=== PATIENT | female | born 2000 | race Caucasian/White ===

== ENCOUNTER 2019-03-13 22:10 | Outpatient (CLI) | payer MEDICAID, SELFPAY ==
[2019-03-13] VITALS (10 sets, daily range): BP systolic 0–135; BP diastolic 0–83; PULSE 49–64; RESP 18; TEMP 36.9; BMI 29.5
== END 2019-03-13 23:50 | disposition home or self-care (01) ==
LOC: OPOB 22:18 → OBGYN 23:43 → OPOB 03-14 07:38
PROVIDERS: Family Provider Family Medicine; Visit Provider Family Medicine
DX: O26.899 Other specified pregnancy related conditions, unspecified trimester (principal); Z3A.00 Weeks of gestation of pregnancy not specified; R50.9 Fever, unspecified; R10.9 Unspecified abdominal pain
CPT/HCPCS: 59025; 99211

== ENCOUNTER 2019-03-25 17:47 | Inpatient (IN) | payer MEDICAID, SELFPAY ==
[2019-03-25] VITALS (13 sets, daily range): BP systolic 0–140; BP diastolic 0–81; PULSE 51–79; RESP 16–18; TEMP 36.9
[2019-03-25 19:35] LABS: Basophils % 0.4 %; Eosinophils # 0.1 10^3/uL (0.0-0.8); Hematocrit 33.2 % (37.0-47.0); Hemoglobin 11.1 g/dL (11.5-15.3); Lymphocytes # 2.2 10^3/uL (1.5-6.5); Lymphocytes % 21.3 %; Mean Corpuscular HGB Conc 33.4 g/dL (30.0-36.0); Mean Corpuscular Hemoglobin 29.9 pg (28.0-34.0); Mean Corpuscular Volume 89.5 fL (81-99); Mean Platelet Volume 9.8 fL (7.4-10.4); Monocytes # 0.6 10^3/uL (0.2-0.9); Monocytes % 5.4 %; Neutrophils # 7.5 10^3/uL (1.8-8.0); Neutrophils % 71.4 %; Nucleated Red Blood Cells % 0 %; Platelet Count 235 10^3/cmm (130-400); Red Blood Count 3.71 10^6/uL (4.1-5.3); Red Cell Distribution Width 13.2 % (12.1-15.1); White Blood Count 10.5 10^3/uL (4.5-13.0)
[2019-03-26] VITALS (46 sets, daily range): BP systolic 0–149; BP diastolic 0–75; PULSE 45–83; RESP 13–18; TEMP 36.6–37.2; O2SAT 95–100
--- NOTE | 2019-03-26 10:04 | P.ANES_ITS ---
Pre-Anesthetic Assessment Pre-Anesthetic Assessment: Height/Weight: Height 1.63 m Weight 78.925 kg Temp Pulse Resp BP 98.3 F 65 16 124/75 03/26/19 01:00 03/26/19 08:49 03/26/19 01:00 03/26/19 08:49 Preop Diagnosis: labor pain Proposed Procedure: Emergent Familial anesthetic complications: N/A Was Beta Valentina taken within 24 hours: N/A Last intake: 09:30 sprite and OJ 09:30 [place] Last Intake: 10:00 Social: Social History: Tobacco Packs per day: 1/2 ppd Pack years: 3 Exam: Pre-Anes Outpt Exam: alert, clear to auscultation bilaterally and regular rate & rhythm Airway: Submandibular: WNL Cervical ROM: WNL MP: 1 Dentition: Other Pulmonary: Pulmonary: None reported Comments: patient states feel like she has a sinus infection but can't take anything for it. sinus drainage. CV/HEM: CV/HEM: None reported : : None reported Hepatic: Hepatic: None reported GI: GI: GERD Metabolic: Metabolic: None reported Musc/skel: Musc/skel: None reported Neuropsych: Neuropsych: None reported Anesthetic Plan: ASA status: II Anesthesia: Anesthesia Evaluation and Regional (specify below) Other: epidural Risk of > 500 ml blood loss (7ml/kg in children): No PFSH Anesthesia Female Reproductive History: : 1 Data Anesthesia CBC & Chem 7: 03/25/19 18:59 Other Labs: Laboratory Results - last 48 hr 03/25/19 18:59 WBC 10.5 RBC 3.71 L Hgb 11.1 L Hct 33.2 L MCV 89.5 MCH 29.9 MCHC 33.4 RDW 13.2 Plt Count 235 MPV 9.8 Neut % (Auto) 71.4 Lymph % (Auto) 21.3 [place] % (Auto) 5.4 Eos % (Auto) 1.0 Baso % (Auto) 0.4 Neut # (Auto) 7.5 Lymph # (Auto) 2.2 [place] # (Auto) 0.6 Eos # (Auto) 0.1 Baso # (Auto) 0.0 Nucleated RBC % (auto) 0 Nucleated RBCs # 0.0 Cardiac Studies: No Data to Display
[2019-03-26] MEDS: ondansetron 2 mg/ML SDV 2 mL 4 MG IVP ×2 (10:53→21:03)
[2019-03-26] MEDS: acetaminophen 325 mg Tablet 650 MG PO (10:54)
[2019-03-26] MEDS: miSOPROStol 100 mcg tablet 25 MCG VAGINAL ×2 (10:59→14:09)
[2019-03-26] MEDS: lactated ringers 1,000 ML 999 ML (14:38)
[2019-03-26] MEDS: fentaNYL 50 mcg/mL INJ 2mL IV (14:46)
--- NOTE | 2019-03-26 16:34 | P.HP_ITS ---
Providers/Chief Complaint Admitting Physician: Russ Canales MD Chief Complaint: induction labor History of Present Illness Rupal Salcedo is a 19 year old female 1 para 0 with an EDC of 03/24/2019. She has had no significant problems or her course except ultrasound that demonstrated a two-vessel cord. There were no other abnormalities noted. As she was 40 weeks and 1 day gestation and having significant pain she was admitted to the hospital yesterday for cervical ripening and induction. An IV was started on her and she had a vasovagal reaction with hypotension and late decelerations immediately after that. That resolved quickly last night but further evaluation found her to be tucker and the decision was made last night to not proceed with misoprostel cervical ripening. Overnight her contractions spaced way out and she had a reassuring heart strip and therefore misoprostel cervical ripening was given. She had a couple of positional spells of late decelerations that resolved very quickly with oxygen and positioning with IV fluid bolus. Immediately after the second dose of misoprostel she had a more prolonged deceleration or recurrent late decelerations. Presently with oxygen and intravenous fluid heart tones are pretty flat but reassuring. There is an occasional acceleration but not a very reactive strip at this time. However, her cervical exam has not changed from approximately 1-1/2 cm dilated. As her cervix is not changing and the overall heart tone strip is not terribly reassuring a decision is being made after discussion with the patient and spouse to proceed with section at this time. Dr. Torres has been notified and consulted. Review of Systems General: Reports: 10 or more systems reviewed and unremarkable except in HPI and below Const: Reports: fatigue; Denies: fever or chills ENMT: Denies: throat pain or nasal discharge Card: Denies: chest pain or palpitations Resp: Denies: shortness of breath, productive cough, non-productive cough or chest congestion GI: Reports: abdominal pain (Tractions.) and nausea; Denies: vomiting (None since this morning.) : Reports: absence of menstruation (She is .) Musc: Reports: back pain; Denies: neck pain or limited range of motion Neuro: Denies: headache, numbness in extremities or weakness in extremities Psych: Reports: anxiety Medications/Allergies Allergies Allergy/AdvReac Type Severity Reaction Status Date / Time No Known Allergies Allergy Verified 03/13/19 22:35 [facility] Acute Female Reporductive History: : 1 Vitals/I&O/Wt Last Vital Signs Temp 99.0 F 03/26/19 12:03 Pulse 53 L 03/26/19 14:16 Resp 15 03/26/19 14:46 BP 128/72 03/26/19 14:16 Weight last 48 hrs Weight 78.925 kg Physical Exam Const: COMMON NORMALS: no apparent distress (She is somewhat tearful and anxious.) and average body habitus GENERAL APPEARANCE: cooperative and anxious ORIENTATION/CONSCIOUSNESS: Yes awake, Yes oriented to person, Yes oriented to place and Yes oriented to time HENMT: MOUTH: oral and palatal mucosa normal Chest: COMMONS NORMALS: inspection of chest normal Resp: COMMON NORMALS: normal respiratory effort, no retractions, no use of accessory muscles and clear to auscultation bilaterally GI: COMMON NORMALS: normal to inspection, nondistended, normoactive bowel sounds (She is .) and non-tender : COMMON NORMALS: Yes no CVA tenderness and Yes external appearance normal BIMANUAL EXAM - VAGINA & UTERUS: Yes normal bimanual exam and Yes normal cervical palpation (Approximately 1-1/2 cm dilated.) Extremity: GENERAL: No calf tenderness and No edema Neuro: COMMON NORMALS: oriented x3, CN's II-XII intact bilaterally, moves all extremities and no focal motor deficits Psych: APPEARANCE: Yes well kempt MOOD & AFFECT: Yes anxious Data : 03/25/19 18:59 A&P Assessment and plan (1) Post term over 40 weeks: Patient was admitted for induction purposes. She received 2 doses of misoprostel today. Status: Acute Code(s): O48.0 - Post-term (2) Non-reassuring heart tones complicating , antepartum: Status: Acute Code(s): O36.8390 - Maternal care for abnormalities of the heart rate or rhythm, unspecified trimester, not applicable or unspecified (3) Two vessel umbilical cord, antepartum, single gestation: This infant is at risk for problems but most babies with the single umb ilical artery do just fine. Status: Acute Code(s): O09.899 - Supervision of other high risk pregnancies, unspecified trimester Attestations Medical Necessity Statement*: This patient is at term with nonreassuring heart tones and presently requires proceeding with primary section due to nonreassuring heart tones and minimal cervical change with contractions. Time Spent in Patient Care: 16 - 35 minutes Coding Level of Care Code Acute Hoop Cutter for Chg Fwd Diagnoses Post term over 40 weeks O48.0 Non-reassuring heart tones complicating , antepartum O36.8390 Two vessel umbilical cord, antepartum, single gestation O09.899
[2019-03-26] MEDS: lactated ringers 1,000 ML 125 ML IV (16:38)
[2019-03-26] MEDS: famotidine 20 mg/2 mL INJ IVP (16:39)
[2019-03-26] MEDS: metoclopramide 5 mg/mL SDV 2 mL 10 MG IVP (16:46)
[2019-03-26] MEDS: citric acid-sodium citrate 30 mL UDC PO (16:47)
--- NOTE | 2019-03-26 18:02 | P.OP_ITS ---
Operative Report Date of procedure: 03/26/19 Pre-op Diagnosis: Nonreassuring heart tones, 40 weeks estimated gestational age Post-op diagnosis: same Procedure Done: Lower transverse section The patient was brought back to the operating room where she was prepped and draped in usual sterile fashion. Anesthesia was found to be adequate. A lower transverse skin incision was then made with a #10 blade. I then dissected down to the underlying subcutaneous tissue until arriving at the prerectal fascia. The fascia was then nicked with the scalpel bilaterally. The fascial incisions were then carried laterally with Trimble scissors. Attention was then turned to the superior aspect of the incision which was grasped with kochers and tented up away from the underlying rectus abdominis muscles. The muscles were then dissected away from the fascia manually, and later with Trimble scissors. Attention was then turned to the inferior aspect of the incision, and the fascia was dissected away from the underlying muscle in similar fashion. The rectus a bdominis muscles were then spread manually. The peritoneum was entered manually. Excellent visualization of the uterus was noted. A lower transverse uterine incision was then made with a #10 blade. Upon arriving at the intrauterine cavity, the uterine incision was then extended manually. Upon entering the amniotic sac, meconium was noted. The was noted to be in vertex position. The baby was delivered without difficulty. After delivery of the head, the mouth and nose were suctioned at the site of the incision. There was no nuchal cord. The remainder of the body was then delivered and placed on the abdomen. The cord was cut and clamped. The baby was then handed to the waiting nurse. The placenta was removed intact. The uterus was externalized. The intrauterine cavity was cleansed of any remaining debris. The uterine incision was reapproximated in 2 layers. The first layer was performed with 0 Vicryl in a running locked stitch. The second layer was an imbricating stitch also using 0 Vicryl. The uterus was replaced into the abdomen. The peritoneum was then irrigated with warm saline. I reexamined the uterine incision and found it to be hemostatic. The rectus abdominis muscles were then reapproximated using 0 Vicryl in a running stitch. The fascia was then reapproximated using 0 Vicryl in running stitch. The subcutaneous tissue was then reapproximated using 0 Vicryl in a running stitch. The skin was reapproximated using rodney. A sterile dressing was placed. All counts were correct x2. Both the mother and baby were in stable condition. Specimens removed/disposition: 1. Male infant with a weight of 8 pounds 4 ounces and Apgars of 4 and 9 2. Placenta delivered with 2 vessel cord Pathology: other Pathology: Placenta with three-vessel cord delivered post pathology Surgeon: Raymond Torres Regulatory Product Manager: Russ Canales Anesthesia: Other (Spinal) Estimated blood loss (mL): 500 Complications: None Condition: stable
[2019-03-26] MEDS: diphenhydrAMINE 50 mg/mL SDV 1mL 25 MG IVP (21:04)
[2019-03-27] VITALS (20 sets, daily range): BP systolic 92–143; BP diastolic 42–84; PULSE 86–143; RESP 16–22; TEMP 36.6–36.9; O2SAT 94–97
[2019-03-27] MEDS: ketorolac 30 mg/mL INJ IVP (01:56)
[2019-03-27 06:09] LABS: Mean Corpuscular HGB Conc 32.7 g/dL (30.0-36.0); Mean Corpuscular Hemoglobin 29.1 pg (28.0-34.0); Mean Corpuscular Volume 89.1 fL (81-99); Mean Platelet Volume 9.2 fL (7.4-10.4); Platelet Count 188 10^3/cmm (130-400); Red Cell Distribution Width 13.1 % (12.1-15.1); White Blood Count 12.7 10^3/uL (4.5-13.0)
[2019-03-27 06:19] LABS: Hematocrit 19.6 % (37.0-47.0); Hemoglobin 6.4 g/dL (11.5-15.3)
[2019-03-27] MEDS: lactated ringers 1,000 ML 999 ML IV (06:41)
--- NOTE | 2019-03-27 07:53 | PM.OBGYPN ---
REIMBURSEMENT DIRECTOR Subjective Subjective: Interval history: The patient complains of shoulder pain. Otherwise her bleeding has been minimal. Her urine output has been around 50/h. Unfortunately, her hemoglobin dropped by almost 5 points last night. Labor: Station: -3 Amniotic Membrane Status: Intact Monitor Mode: None Contraction Pattern: Regular Status: Category l Vitals/I&O/Wt Last Vital Signs Temp 98.3 F 03/27/19 06:50 Pulse 86 03/27/19 06:50 Resp 16 03/27/19 06:50 BP 99/61 03/27/19 06:50 Pulse Ox 94 03/27/19 06:50 03/26/19 03/27/19 03/27/19 22:59 06:59 14:59 Intake Total 2000 / 2000 600 / 2600 Output Total 700 / 700 600 / 1300 Balance 1300 / 1300 0 / 1300 Weight last 48 hrs Weight 174 lb Physical Exam Narrative: EXAM NARRATIVE: She is in no acute distress Lungs are clear auscultation bilaterally Her heart has a regular rate and rhythm Her fundus is below the umbilicus and firm Her dressing is clean, dry and intact Her extremities have no edema Urinary Catheter Management^: Matthews: Cath Placed During This Visit: no Data : 03/27/19 05:59 A&P Assessment and plan (1) Post term over 40 weeks: Status: Acute Code(s): O48.0 - Post-term (2) Status post : Due to the hemoglobin drop, I am going to give the patient 2 units of packed red blood cells. We are going to put a secondary IV in. I am going to replace her Matthews that was removed prior to knowing the blood count. We will recheck her hemoglobin 2 hours after the final unit of blood has been placed. We will carefully monitor her vitals today for further indications of bleeding. So far, her vitals have not been indicative of the blood loss that she has had. As such, we are going to have to be very vigilant since the typical indicators may not be as helpful as they usually are. Status: Acute Code(s): Z98.891 - History of uterine scar from previous surgery (3) Blood loss, postoperative: Status: Acute Attestations Medical Necessity Statement*: I anticipate the patient will be here for 1-2 more days. Her hospital stay may be prolonged somewhat because of her postoperative blood loss. Coding Level of Care Code Acute Surveillance Officer for Chg Fwd Diagnoses Post term over 40 weeks O48.0 Status post Z98.891 Blood loss, postoperative
[2019-03-27] MEDS: HYDROcodone-acetaminophen 5-325 mg Tablet PO ×4 (08:41→21:13)
[2019-03-27] MEDS: acetaminophen 325 mg Tablet 650 MG PO (08:42)
[2019-03-27] MEDS: prenatal vitamin Capsule 1 CAP PO (08:42)
[2019-03-27] MEDS: diphenhydrAMINE 25 mg Capsule PO (08:43)
[2019-03-27] MEDS: docusate sodium 100 mg Capsule PO ×2 (08:43→17:44)
[2019-03-27] MEDS: ferrous sulfate EC 325 mg Tablet PO ×2 (08:44→17:44)
[2019-03-27] MEDS: sodium chloride 0.9% 100 ML 50 ML (12:15)
[2019-03-27] MEDS: dextrose 5%-lactated ringers 1,000 ML 125 ML IV ×2 (15:34→22:45)
[2019-03-27 16:39] LABS: Hematocrit 24.7 % (37.0-47.0); Hemoglobin 8.1 g/dL (11.5-15.3); Mean Corpuscular HGB Conc 32.8 g/dL (30.0-36.0); Mean Corpuscular Hemoglobin 30.2 pg (28.0-34.0); Mean Corpuscular Volume 92.2 fL (81-99); Mean Platelet Volume 9.5 fL (7.4-10.4); Platelet Count 151 10^3/cmm (130-400); Red Blood Count 2.68 10^6/uL (4.1-5.3); Red Cell Distribution Width 13.1 % (12.1-15.1); White Blood Count 10.1 10^3/uL (4.5-13.0)
[2019-03-27 17:10] LABS: Absolute Segmented Neutrophil 6.6 10/cmm (1.6-7.1); Lymphocytes 31 %; Monocytes Absolute 0.3 10^3/cmm (0.1-0.6); Segmented Neutrophils 66 %; Total Cells Counted 100 (0-100)
[2019-03-27 17:11] LABS: Platelet Estimate Normal (Normal)
--- NOTE | 2019-03-27 19:45 | PC.NURSE ---
RT to room for IS instructions.
[2019-03-27] MEDS: lanolin oint 7 gm 1 APPLIC TOPICAL (22:46)
[2019-03-28] VITALS (7 sets, daily range): BP systolic 107–129; BP diastolic 63–84; PULSE 83–112; RESP 18–24; TEMP 36.6–36.8; O2SAT 98
[2019-03-28] MEDS: HYDROcodone-acetaminophen 5-325 mg Tablet PO ×3 (00:59→08:19)
[2019-03-28 05:03] LABS: Basophils % 0.2 %; Eosinophils # 0.1 10^3/uL (0.0-0.8); Hemoglobin 7.9 g/dL (11.5-15.3); Lymphocytes # 2.7 10^3/uL (1.5-6.5); Mean Corpuscular HGB Conc 32.9 g/dL (30.0-36.0); Mean Corpuscular Hemoglobin 30.2 pg (28.0-34.0); Mean Corpuscular Volume 91.6 fL (81-99); Mean Platelet Volume 9.7 fL (7.4-10.4); Monocytes # 0.6 10^3/uL (0.2-0.9); Monocytes % 6.6 %; Neutrophils # 5.8 10^3/uL (1.8-8.0); Neutrophils % 62.8 %; Nucleated Red Blood Cells % 0 %; Platelet Count 153 10^3/cmm (130-400); Red Blood Count 2.62 10^6/uL (4.1-5.3); Red Cell Distribution Width 13.7 % (12.1-15.1); White Blood Count 9.2 10^3/uL (4.5-13.0)
[2019-03-28] MEDS: dextrose 5%-lactated ringers 1,000 ML 125 ML IV (06:27)
--- NOTE | 2019-03-28 07:12 | P.PN_ITS ---
ANESTHETIC ASSISTANT Subjective Subjective: Interval history: The patient is doing much better today. She is more comfortable. She is hungry. She has not passed gas. She has had minimal bleeding. Labor: Station: -3 Amniotic Membrane Status: Intact Monitor Mode: None Contraction Pattern: Regular Status: Category l Vitals/I&O/Wt Last Vital Signs Temp 98.0 F 03/28/19 04:00 Pulse 105 H 03/28/19 04:00 Resp 20 H 03/28/19 04:00 BP 107/63 03/28/19 04:00 Pulse Ox 97 03/27/19 14:50 03/27/19 03/28/19 03/28/19 22:59 06:59 14:59 Intake Total 897.917 / 2297.917 1100 / 3397.917 Output Total 1000 / 2600 1250 / 3850 Balance -102.083 / -302.083 -150 / -452.083 Physical Exam Narrative: EXAM NARRATIVE: She is in no acute distress Lungs are clear auscultation bilaterally Her heart has a regular rate and rhythm Her fundus is below the umbilicus and firm Her dressing is clean, dry and intact Her extremities have minimal edema Urinary Catheter Management^: Matthews: Cath Placed During This Visit: no Data : 03/28/19 03:48 A&P Assessment and plan (1) Status post : Status: Acute Code(s): Z98.891 - History of uterine scar from previous surgery (2) Blood loss, postoperative: Status: Acute Attestations Medical Necessity Statement*: Anticipate the patient will be discharged tomorrow morning. We will recheck her complete blood count tomorrow morning again to make sure that her hemoglobin is stable. Coding Level of Care Code Acute Sticker Machine Operator for Chg Fwd Diagnoses Status post Z98.891 Blood loss, postoperative
[2019-03-28] MEDS: simethicone 80 mg Chew PO ×2 (08:18→20:57)
[2019-03-28] MEDS: ferrous sulfate EC 325 mg Tablet PO ×2 (08:18→21:07)
[2019-03-28] MEDS: docusate sodium 100 mg Capsule PO ×2 (08:18→20:37)
[2019-03-28] MEDS: prenatal vitamin Capsule 1 CAP PO (08:18)
[2019-03-28] MEDS: oxyCODONE-APAP 5-325 mg Tablet 2 TAB PO (20:57)
[2019-03-29 01:45] VITALS: BP 122/78; PULSE 86; RESP 18; TEMP 36.9
[2019-03-29 04:32] VITALS: BP 118/78; PULSE 82; RESP 18; TEMP 36.6; O2SAT 98
[2019-03-29] MEDS: oxyCODONE-APAP 5-325 mg Tablet 2 TAB PO ×2 (04:32→11:44)
[2019-03-29 05:11] LABS: Basophils % 0.3 %; Eosinophils # 0.2 10^3/uL (0.0-0.8); Eosinophils % 1.8 %; Hematocrit 23.5 % (37.0-47.0); Hemoglobin 7.9 g/dL (11.5-15.3); Lymphocytes # 2.2 10^3/uL (1.5-6.5); Lymphocytes % 21.8 %; Mean Corpuscular HGB Conc 33.6 g/dL (30.0-36.0); Mean Corpuscular Volume 89.4 fL (81-99); Mean Platelet Volume 9.8 fL (7.4-10.4); Monocytes # 0.6 10^3/uL (0.2-0.9); Monocytes % 5.8 %; Neutrophils % 69.8 %; Nucleated Red Blood Cells % 0 %; Platelet Count 191 10^3/cmm (130-400); Red Blood Count 2.63 10^6/uL (4.1-5.3); Red Cell Distribution Width 13.4 % (12.1-15.1); White Blood Count 10.1 10^3/uL (4.5-13.0)
--- NOTE | 2019-03-29 07:19 | PM.OBGYDC ---
Discharge Providers REFINERY OPERATOR COKING Date of Admission: 03/25/19 17:47 Date of Discharge: 03/29/19 Attending Provider at Admission: Russ Canales MD Attending Provider at Discharge: Russ Canales MD Consults: Raymond Torres MD Diagnoses at Discharge Discharge Diagnosis (1) Status post : Status: Acute (2) Blood loss, postoperative: Status: Acute Reason for Visit Reason for Visit: Reason For Visit: induction labor Hospital Course Hospital Course: The patient presented to the hospital for induction of labor. Please see Dr. Canales's notes for details of the induction process. After having a prolonged induction process, the cervix had changed very little, and the baby was showing some signs of distress. As result Dr. Canales elected to proceed with a section. The went very well. There were no signs of complications or problems. During the night, the patient did well overall. Her vitals were fairly stable. Her urine output was adequate. The following morning her hemoglobin was noted to be 6.5 which was a drop from 11.1 the night before. As result, I elected to transfuse 2 units of blood. Her hemoglobin then increased to 8.1. Her urine output was excellent. Her vitals remained stable. Her hemoglobin globin was checked 2 more times it was found to be 7.9 both times. She did struggle somewhat with pain in various areas including in her shoulders and in her abdomen. We were able to adjust her regimen to improve her pain control. The patient's diet was advanced to a regular diet and she tolerated it well. Her vaginal bleeding was minimal. Her incision did very well. She breast-fed well. Dr. Canales is caring for the infant. Information Peripartum Data: Infant Delivery Method: Section Physical Exam Narrative: EXAM NARRATIVE: She is in no acute distress Lungs are clear auscultation bilaterally Her heart has a regular rate and rhythm Her fundus is below the umbilicus and firm Her dressing is clean, dry and intact Her extremities have trace edema Urinary Catheter Management^: Matthews: Cath Placed During This Visit: no Discharge Data Data Completed and Pending: Pending at discharge Category Date Time Status Pathology: Surgic al [PTH] Routine Pth 03/26/19 18:00 Received Labs from last 24 hours 03/29/19 04:06 WBC 10.1 RBC 2.63 L Hgb 7.9 L Hct 23.5 L MCV 89.4 MCH 30.0 MCHC 33.6 RDW 13.4 Plt Count 191 MPV 9.8 Neut % (Auto) 69.8 Lymph % (Auto) 21.8 [place] % (Auto) 5.8 Eos % (Auto) 1.8 Baso % (Auto) 0.3 Neut # (Auto) 7.0 Lymph # (Auto) 2.2 [place] # (Auto) 0.6 Eos # (Auto) 0.2 Baso # (Auto) 0.0 Nucleated RBC % (a uto) 0 Nucleated RBCs # 0.0 Vitals: Last Vital Signs Temp 97.8 F 03/29/19 04:32 Pulse 82 03/29/19 04:32 Resp 18 03/29/19 04:32 BP 118/78 03/29/19 04:32 Pulse Ox 98 03/29/19 04:32 Discharge Plan Discharge Patient Disposition: Home, Self-Care Condition: Stable Prescriptions: New ibuprofen 800 mg Tablet 800 mg PO TID Qty: 45 RF: 0 oxycodone-acetaminophen 5-325 mg Tablet 1 - 2 tab PO Q6H PRN (Reason: Moderate To Severe Pain) Qty: 30 RF: 0 FeroSul 325 mg (65 mg iron) tablet 325 mg PO DAILY Qty: 90 RF: 0 Continued 28 mg iron- 800 mcg Tablet 1 tab PO DAILY Qty: 30 RF: 0 Discharge Orders: Discharge Order (Routine); Ordered 03/29/19 Ordered By: Raymond Torres Referrals: Russ Canales MD [Physician] - 6 Weeks Raymond Torres MD [Physician] - 4-7 days Discharge Diet: Regular Discharge Activity: Limit activity as instructed Discharge Attestations REFINERY OPERATOR COKING Time Spent in Discharge Care*: less than 30 min Coding Level of Care Code Acute Contracts Paralegal for Chg Fwd Diagnoses Status post Z98.891 Blood loss, postoperative
[2019-03-29] MEDS: docusate sodium 100 mg Capsule PO (08:52)
[2019-03-29] MEDS: ferrous sulfate EC 325 mg Tablet PO (08:52)
[2019-03-29] MEDS: prenatal vitamin Capsule 1 CAP PO (08:52)
[2019-03-29 10:15] VITALS: BP 136/94; PULSE 97; RESP 18; TEMP 36.7; O2SAT 99
[2019-03-29 11:44] VITALS: RESP 18
[2019-03-29 13:00] VITALS: BP 112/78; PULSE 90; RESP 18; TEMP 36.7; O2SAT 99
[2019-03-29 13:15] VITALS: BP 112/78; PULSE 90; RESP 18; TEMP 36.7; O2SAT 99
== END 2019-03-29 13:17 | disposition home or self-care (01) | DRG 787 ==
PROVIDERS: Family Medicine; Admitting Provider Family Medicine; Family Provider Family Medicine; Visit Provider Family Medicine
PROC: 10D00Z1 Extraction of Products of Conception, Low, Open Approach (ICD-10-PCS; CPT 59514; principal; 2019-03-26 17:15)
DX: O48.0 Post-term pregnancy (principal); D62 Acute posthemorrhagic anemia; O76 Abnormality in fetal heart rate and rhythm complicating labor and delivery; Z3A.40 40 weeks gestation of pregnancy; Z37.0 Single live birth; O26.53 Maternal hypotension syndrome, third trimester; O99.344 Other mental disorders complicating childbirth; F41.9 Anxiety disorder, unspecified; O99.02 Anemia complicating childbirth
CPT/HCPCS: 12345; 36415; 36430; 51702; 59025; 59409; 85007; 85025; 85027; 86850; 86900; 88307; 94640; 96360; 96375; 98960; J0690; J1200; J1885; J2274; J2405; J2590; J2765; J3010; J3490; P9016

== ENCOUNTER 2020-11-06 05:00 | Inpatient (IN) | payer BC, MEDICAID, SELFPAY ==
--- NOTE | 2020-10-31 10:24 | ANES.PREANE2 ---
Pre-Anesthetic Assessment Pre-Anesthetic Assessment: Height/Weight: Height 1.63 m Preop Diagnosis: Nonreassuring heart tones, 40 weeks estimated gestational age Proposed Procedure: Operation Date: 11/06/20 07:00 Proposed Procedures p Section Repeat With Tubal(Not Applicable) - Raymond Torres MD Familial anesthetic complications: None Social: Social History: Tobacco and No alcohol Exam: Pre-Anes Outpt Exam: alert, oriented x 3, clear to auscultation bilaterally and regular rate & rhythm Airway: Cervical ROM: WNL MP: 2 Dentition: Full Anesthetic Plan: ASA status: 2 Anesthesia: Regional (specify below) (spinal) Risk of > 500 ml blood loss (7ml/kg in children): Yes, adequate IV access and fluids planned Data Anesthesia Cardiac Studies: No Data to Display
[2020-11-06] VITALS (21 sets, daily range): BP systolic 97–119; BP diastolic 27–66; PULSE 65–113; RESP 16–17; TEMP 35.7–37; O2SAT 95–99
[2020-11-06 05:37] LABS: Basophils % 0.4 %; Eosinophils # 0.1 10^3/uL (0.0-0.8); Eosinophils % 0.7 %; Hematocrit 30.6 % (37.0-47.0); Hemoglobin 9.5 g/dL (11.5-15.3); Lymphocytes # 3.2 10^3/uL (0.8-4.8); Lymphocytes % 28.2 %; Mean Corpuscular Hemoglobin 25.4 pg (28.0-34.0); Mean Corpuscular Volume 81.8 fl (81-99); Mean Platelet Volume 9.1 fL (7.4-10.4); Monocytes # 0.6 10^3/uL (0.2-0.9); Monocytes % 5.3 %; Neutrophils # 7.43 10^3/uL (1.8-7.7); Nucleated Red Blood Cells % 0 %; Platelet Count 272 10^3/cmm (130-400); Red Blood Count 3.74 10^6/uL (4.1-5.3); Red Cell Distribution Width 14.9 % (12.1-15.1); White Blood Count 11.4 10^3/uL (4.0-10.0)
[2020-11-06] MEDS: lactated ringers 1,000 ML 999 ML IV (05:54)
[2020-11-06] MEDS: metoclopramide 5 mg/mL SDV 2 mL 10 MG IVP (06:46)
[2020-11-06] MEDS: famotidine 20 mg/2 mL INJ IVP (06:46)
[2020-11-06] MEDS: citric acid-sodium citrate 30 mL UDC PO (06:47)
--- NOTE | 2020-11-06 06:48 | P.HP_ITS ---
Providers/Chief Complaint Admitting Physician: Raymond Torres MD Primary Care Provider: Narendra Toscano MD Chief Complaint: scheduled c section HPI DATABASE MARKETING SPECIALIST History of Present Illness Rupal Salcedo is a 20 year old female at 39 weeks estimated gestational age. She presents to the hospital for a scheduled repeat section and bilateral tubal ligation. Her has been unremarkable. I saw the patient earlier in her and we discussed the risks of bleeding, infection, and damage intra-abdominal organs. She is especially aware that she had a history of a bleed with her last so we will be mindful of that. Present Details : 2 Para: 1 Labs Rubella: Immune GBS: Negative Review of Systems General: Reports: 10 or more systems reviewed and unremarkable except in HPI and below Const: Reports: fatigue; Denies: fever(s) Eyes: Denies: change in vision Card: Denies: chest pain Musc: Reports: back pain Paul/Lymph: Denies: easy bruising Medications/Allergies Home Medications Medication Instructions Recorded Confirmed Last Taken Type PNV cmb#95-ferrous fumarate-FA 1 tab PO DAILY #30 tab 03/29/19 03/25/19 11/05/20 Rx [] Allergies Allergy/AdvReac Type Severity Reaction Status Date / Time No Known Allergies Allergy Verified 03/13/19 22:35 Vitals/I&O/Wt Last Vital Signs Temp 96.3 F L 11/06/20 06:01 Pulse 100 11/06/20 06:01 Resp 17 11/06/20 05:15 BP 113/63 11/06/20 06:01 Pulse Ox 99 11/06/20 05:58 Weight last 48 hrs Weight 175 lb Physical Exam Const: COMMON NORMALS: patient oriented x3 and alert HENMT: COMMON NORMALS: moist oral mucous membranes HEAD & SCALP: normal to inspection Chest: COMMONS NORMALS: normal inspection of the chest Resp: COMMON NORMALS: clear to auscultation bilaterally AUSCULTATION: clear to auscultation bilaterally Cardio: COMMON NORMALS: regular rate and regular rhythm RATE: regular rate RHYTHM: regular rhythm GI: INSPECTION: Yes normal to inspection and Yes other (Gravid) Extremity: COMMON NORMALS: normal to inspection GENERAL: Yes edema (Trace) Neuro: COMMON NORMALS: patient oriented x3, moves all extremities and no sensory deficits noted SENSORIUM/ORIENTATION: Yes alert Psych: COMMON NORMALS: mental status grossly normal Skin: COMMON NORMALS: no rashes or lesions noted GENERAL SKIN EXAM: no rashes or lesions noted Data : 11/06/20 05:30 A&P Assessment and plan (1) History of : We will proceed with a repeat section and a bilateral tubal ligation. She has 2 IVs placed due to her history of post hemorrhage. I once again asked the patient and her whether she is sure she wants to be sterilized. We once again discussed the risks including the risk of bleeding infection damage intra-abdominal organs. I once again let them know that it is possible become again after a tubal ligation. Status: Acute (2) 39 weeks gestation of : Status: Acute (3) Sterilization: Status: Acute Attestations Medical Necessity Statement*: I anticipate routine and post C- section care. Coding Level of Care Code Acute Site Planner for Odalis Ramirez Diagnoses History of Z98.891 39 weeks gestation of Z3A.39 Sterilization Z30.2
--- NOTE | 2020-11-06 08:05 | PM.OP ---
Operative Report Date of procedure: November 06, 2020 Pre-op Diagnosis: History of , desires sterilization Post-op diagnosis: same Procedure Done: 1. Lower transverse section. 2. Intraoperative bilateral tubal ligation. Specimens removed/disposition: 1. Healthy-appearing male with a weight of 8 pounds 5 ounces and Apgars of 8 and 9 2. Placenta with a three-vessel cord delivered intact 3. Bilateral fallopian tube segments with the right segment being tagged Pathology: other (Bilateral fallopian tube segments with the right segment being tagged) Surgeon: Raymond Torres [employer] Professionals: Russ Canales Anesthesia: Epidural (Spinal) Estimated blood loss (mL): 500 Complications: None Condition: stable Disposition: floor (OB) Brief History: Refer to history and physical Procedure: The patient was brought back to the operating room where she was prepped and draped in usual sterile fashion. Anesthesia was found to be adequate. A lower transverse skin incision was then made with a #10 blade. I then dissected down to the underlying subcutaneous tissue until arriving at the prerectal fascia. The fascia was then nicked with the scalpel bilaterally. The fascial incisions were then carried laterally with Trimble scissors. Attention was then turned to the superior aspect of the incision which was grasped with kochers and tented up away from the underlying rectus abdominis muscles. The muscles were then dissected away from the fascia manually, and later with Trimble scissors. Attention was then turned to the inferior aspect of the incision, and the fascia was dissected away from the underlying muscle in similar fashion. The rectus abdominis muscles were then spread manually. The peritoneum was entered manually. Excellent visualization of the uterus was noted. A lower transverse uterine incision was then made with a #10 blade. Upon arriving at the intrauterine cavity, the uterine incision was then extended manually. The infant was noted to be in vertex position. Pressure from Dr. Canales, the baby was delivered from a vertex position. There was no meconium. There was no nuchal cord. After the baby was completely delivered, the cord was cut and clamped. The baby was then handed to the waiting nurse. The placenta was removed intact. The uterus was externalized. The intrauterine cavity was cleansed of any remaining debris. The uterine incision was reapproximated in 2 layers. The first layer was performed with 0 Vicryl in a running locked stitch. The second layer was an imbricating stitch also using 0 Vicryl. I then performed 2 [id number] stitches to maintain excellent hemostasis. Attention was then turned to the fallopian tubes. They were ligated, cut, and cauterized in a modified Gail fashion. After reexamining the uterine incision and finding no bleeding, the uterus was replaced into the abdomen. The peritoneum was then irrigated with warm saline. I once again reexamined the uterine incision and found it to be hemostatic. The rectus abdominis muscles were then reapproximated using 0 Vicryl in a running stitch. The fascia was then reapproximated using 0 Vicryl in running stitch. The skin was reapproximated using rodney. A sterile dressing was placed. All counts were correct x2. Both the mother and baby were in stable condition. Associated Problem List Diagnoses (1) Sterilization: (2) 39 weeks gestation of : (3) History of :
[2020-11-06] MEDS: hyDROXYzine 25 mg Capsule 50 MG PO (08:55)
[2020-11-06] MEDS: ketorolac 30 mg/mL INJ IVP ×3 (08:56→21:31)
[2020-11-06] MEDS: ondansetron 2 mg/ML SDV 2 mL 4 MG IVP ×2 (09:06→10:11)
[2020-11-06] MEDS: promethazine 25 mg/mL SDV 1 mL IM (12:16)
[2020-11-06] MEDS: dextrose 5%-lactated ringers 1,000 ML 125 ML IV ×2 (12:28→22:23)
[2020-11-06 20:50] LABS: Hematocrit 28.4 % (37.0-47.0); Hemoglobin 8.7 g/dL (11.5-15.3); Mean Corpuscular HGB Conc 30.6 g/dL (30.0-36.0); Mean Corpuscular Hemoglobin 25.9 pg (28.0-34.0); Mean Corpuscular Volume 84.5 fl (81-99); Mean Platelet Volume 9.3 fL (7.4-10.4); Platelet Count 222 10^3/cmm (130-400); Red Blood Count 3.36 10^6/uL (4.1-5.3); Red Cell Distribution Width 15.1 % (12.1-15.1)
[2020-11-06] MEDS: ferrous sulfate EC 325 mg Tablet PO (21:30)
[2020-11-06] MEDS: docusate sodium 100 mg Capsule PO (21:31)
[2020-11-07] MEDS: ketorolac 30 mg/mL INJ IVP (02:44)
[2020-11-07 04:10] VITALS: BP 94/54; PULSE 64; RESP 16; TEMP 36.7
[2020-11-07] MEDS: HYDROcodone-acetaminophen 5-325 mg Tablet PO ×4 (06:11→21:30)
[2020-11-07] MEDS: simethicone 80 mg Chew PO ×2 (06:19→13:16)
--- NOTE | 2020-11-07 07:48 | P.DS_ITS ---
Discharge Providers PULL TAB DEALER Date of Admission: 11/06/20 05:00 Date of Discharge: 11/07/20 Attending Provider at Admission: Raymond Torres MD Attending Provider at Discharge: Raymond Torres MD Primary Care Provider: Narendra Toscano MD Diagnoses at Discharge Discharge Diagnosis (1) Sterilization: Status: Acute (2) 39 weeks gestation of : Status: Acute (3) History of : Status: Acute Reason for Visit Reason for Visit: scheduled c section Hospital Course Hospital Course The patient arrived to the hospital for a scheduled and bilateral tubal ligation. The and tubal ligation went well. There were no complications. Initially, after the surgery, she had nausea and vomiting which was not responsive to Zofran, but which responded to promethazine. Her bleeding was within normal limits. Her pain was well controlled. She has not passed gas yet this morning, but presuming that she does, and she is able to advance her diet well today without problems, she can be discharged this evening. Information Peripartum Data: Infant Delivery Method: Physical Exam Narrative: EXAM NARRATIVE: She is in no acute distress Lungs are clear auscultation bilaterally Her heart has a regular rate and rhythm Her fundus is below the umbilicus and firm Her dressing is clean, dry and intact Her extremities have trace edema Urinary Catheter Management^: Matthews: Cath Placed During This Visit: yes, but has since been removed by the nurse Reason for Continuing Indwelling Catheter: Perioperative Use in Selected Surgeries Urinary Catheter Date of Insertion: 11/06/20 Urinary Catheter Time of Insertion: 07:10 Date Urinary Catheter Removed: 11/07/20 Time Urinary Catheter Discontinued: 18:00 Discharge Data Data Completed and Pending: Pending at discharge Category Date Time Status Pathology: Surgic al [PTH] Routine Pth 11/06/20 18:54 Ordered Labs from last 24 hours 11/06/20 20:30 WBC 13.0 H RBC 3.36 L Hgb 8.7 L Hct 28.4 L MCV 84.5 MCH 25.9 L MCHC 30.6 RDW 15.1 Plt Count 222 MPV 9.3 Vitals: Last Vital Signs Temp 98.1 F 11/07/20 04:10 Pulse 64 11/07/20 04:10 Resp 16 11/07/20 04:10 BP 94/54 11/07/20 04:10 Pulse Ox 97 11/06/20 08:35 Discharge Plan Discharge Patient Disposition: Home Condition: Stable Prescriptions: New ibuprofen 800 mg Tablet 800 mg PO TID Qty: 45 RF: 0 hydrocodone-acetaminophen 5-325 mg Tablet 1 tab PO Q6H PRN (Reason: Moderate To Severe Pain) Qty: 20 RF: 0 Continued PNV [id number] fumarate-FA [] 28 mg iron- 800 mcg Tablet 1 tab PO DAILY Qty: 30 RF: 0 Discharge Orders: Discharge Order (Routine); Ordered 11/07/20 Ordered By: Raymond Torres Referrals: Raymond Torres MD [Physician] - 4-7 days (Please set up appointment with Dr. Canales in 6 weeks as well) Discharge Diet: Usual diet Discharge Activity: Limit activity as instructed Patient Instructions: Opioid Safety Discharge Attestations PULL TAB DEALER Time Spent in Discharge Care*: less than 30 min Coding Level of Care Code Acute Keypunch Operators Supervisor for Chg Fwd Diagnoses Sterilization Z30.2 39 weeks gestation of Z3A.39 History of Z98.891
[2020-11-07 09:45] VITALS: BP 111/65; PULSE 77; RESP 15; TEMP 36.9
[2020-11-07] MEDS: prenatal vitamin Capsule 1 CAP PO (10:05)
[2020-11-07] MEDS: docusate sodium 100 mg Capsule PO ×2 (10:05→19:43)
[2020-11-07] MEDS: ferrous sulfate EC 325 mg Tablet PO ×2 (10:05→19:43)
[2020-11-07 17:40] VITALS: BP 101/55; PULSE 56; RESP 16; TEMP 36.8
[2020-11-07] MEDS: ibuprofen 800 mg tablet PO (19:43)
[2020-11-07 22:00] VITALS: BP 101/49; PULSE 62; TEMP 37.1
[2020-11-07 22:20] VITALS: BP 101/49; PULSE 62; TEMP 37.1
== END 2020-11-07 22:20 | disposition home or self-care (01) | DRG 785 ==
PROVIDERS: Admitting Provider Family Medicine; PCP Family Medicine; Visit Provider Family Medicine
PROC: 10D00Z1 Extraction of Products of Conception, Low, Open Approach (ICD-10-PCS; CPT 59514; principal; 2020-11-06 07:00)
DX: O34.219 Maternal care for unspecified type scar from previous cesarean delivery (principal); Z3A.39 39 weeks gestation of pregnancy; Z37.0 Single live birth; Z30.2 Encounter for sterilization; O99.334 Smoking (tobacco) complicating childbirth; F17.200 Nicotine dependence, unspecified, uncomplicated; Z87.59 Personal history of other complications of pregnancy, childbirth and the puerperium
CPT/HCPCS: 12345; 36415; 58611; 59025; 59409; 85025; 85027; 86850; 86900; 88302; 96372; 96374; 96375; 98960; J1885; J2274; J2370; J2405; J2550; J2765; J3010; J3490

== ENCOUNTER → 2021-12-31 14:55 | Outpatient (BNVA) | payer BC, MEDICAID, SELFPAY | PROVIDERS: PCP Family Medicine; Visit Provider Registered Nurse Neonatal Intensive Care | DX: N39.0 Urinary tract infection, site not specified (principal); N12 Tubulo-interstitial nephritis, not specified as acute or chronic | CPT/HCPCS: 81000; 87086 ==

== ENCOUNTER 2022-01-05 11:35 | Emergency (ER) | payer BC, MEDICAID, SELFPAY ==
[2022-01-05 11:46] VITALS: BP 121/79; PULSE 97; RESP 14; TEMP 36.4; O2SAT 98; BMI 26.6
--- NOTE | 2022-01-05 12:36 | ED_ITS ---
HPI - Female Genitourinary General: Chief complaint: Urogenital-Female Stated complaint: abd pains Time Seen by Provider: 01/05/22 11:48 History of Present Illness: 21-year-old female presents with some right lower pelvic pain/abdominal pain. Patient reports that she was seen a 5 days ago and started on Bactrim for a urinary tract infection. Patient reports at that time she had a little bit of a right flank pain. She reports today that she is having discomfort down in her lower abdomen and thinks it is still from a kidney infection. Patient notices a little blood when she wipes. She does not feel she could be because she has had her tubes tied. He denies any fever, chills nausea or vomiting or diarrhea. Associated symptoms: Reports abdominal pain; Deny headache(s) or nausea Review of Systems Const: Denies: fever(s) or chills Eyes: Denies: change in vision or blurry vision Card: Denies: chest pain or palpitations Resp: Denies: dyspnea or productive cough GI: Reports: abdominal pain; Denies: nausea or vomiting : Reports: flank pain and other (Please see HPI) Musc: Denies: neck pain or extremity pain Skin/Breast: Denies: rash or erythema Neuro: Denies: headache(s) or dizziness Physical Exam Const: COMMON NORMALS: no acute distress and patient oriented x3 HENMT: COMMON NORMALS: hearing grossly normal bilaterally and moist oral mucous membranes Resp: COMMON NORMALS: normal respiratory effort, No retractions, No use of accessory muscles and clear to auscultation bilaterally AUSCULTATION: clear to auscultation bilaterally Cardio: COMMON NORMALS: regular rate and regular rhythm RATE: regular rate RHYTHM: regular rhythm : BLADDER/KIDNEY EXAM: No CVA tenderness OTHER: Mild tenderness right suprapubic region Back/Pelvis: GENERAL BACK: No CVA tenderness Extremity: COMMON NORMALS: normal to inspection and full ROM Neuro: COMMON NORMALS: patient oriented x3, moves all extremities, no focal motor deficits and no sensory deficits noted Psych: COMMON NORMALS: mental status grossly normal, cooperative, normal affect and speech normal SPEECH: Yes normal speech Skin: COMMON NORMALS: no rashes or lesions noted and turgor normal GENERAL SKIN EXAM: no rashes or lesions noted and turgor normal Course Vital Signs: Vital signs: Vital Signs Temperature 97.6 F 01/05/22 11:46 Pulse Rate 97 01/05/22 11:46 Respiratory Rate 14 01/05/22 11:46 Blood Pressure 121/79 01/05/22 11:46 Pulse Oximetry 98 01/05/22 11:46 Oxygen Delivery Me thod 01/05/22 11:46 MDM - Female Medical Decision Making Patient CT is negative for a kidney stone. Patient's urine is still questionable for lingering UTI. I will start her on Keflex and she has been on Bactrim. Patient does have some ovarian cyst on CT which could be a cause of her pain. If her symptoms or not improved over the next week she should follow with her primary care provider. Patient stable and discharged home Lab Data Radiology Impressions Abdomen/Pelvis CT 01/05/22 12:53 IMPRESSION: There are probable ovarian cysts.Fluid is seen in the pelvis which may be physiologic. If there is desire for further evaluation, a pelvic ultrasound could be performed. Laboratory Results HCG, Qual Negative (Negative) 01/05/22 11:56 Urine Color Yellow (Yellow) 01/05/22 11:56 Urine Appearance Hazy (CLEAR) A 01/05/22 11:56 Urine pH 7 (5-7) 01/05/22 11:56 Ur Specific [place] 1.005 (1.005-1.030) 01/05/22 11:56 Urine Protein Neg (Negative) 01/05/22 11:56 Urine Glucose (UA) Norm (Normal) 01/05/22 11:56 Urine Ketones Negative (Negative) 01/05/22 11:56 Urine Blood 3+ (Negative) H 01/05/22 11:56 Urine Nitrate Negative (Negative) 01/05/22 11:56 Urine Bilirubin Neg (Negative) 01/05/22 11:56 Urine Urobilinogen Norm mg/dL (Negative) 01/05/22 11:56 Ur Leukocyte Esterase 2+ (Negative) H 01/05/22 11:56 Urine RBC 10-15 /hpf (0-2) H 01/05/22 11:56 Urine WBC 55-80 /hpf (0-5) H 01/05/22 11:56 Ur Squamous Epith Cells 0-4 /hpf (0-5) H 01/05/22 11:56 Amorphous Sediment Not Reportable 01/05/22 11:56 Urine Bacteria Trace /hpf (NONE) 01/05/22 11:56 Urine Mucus Trace /hpf 01/05/22 11:56 Discharge Plan Discharge Patient Disposition: Home Clinical Impression: Urinary tract infection, Ovarian cyst Condition: Stable Prescriptions: New cephalexin 500 mg capsule 500 mg PO BID 7 Days Qty: 14 0RF No Action sulfamethoxazole-trimethoprim [Bactrim DS] 800-160 mg tablet 1 tab PO BID 10 Days Qty: 20 0RF ibuprofen 800 mg Tablet 800 mg PO TID Qty: 45 0RF Discharge Orders: Discharge ED (Routine); Ordered 01/05/22 Ordered By: Indio Ferrara Referrals: Narendra Toscano MD [Primary Care Provider] - Discharge Diet: Usual diet Discharge Activity: Resume usual activity Patient Instructions: Ovarian Cyst (ED), Urinary Tract Infection in Women (DC), Opioid Safety, Pain Management Activity Restrictions/Additional Instructions: Follow-up with your primary care provider and 5 to 7 days if symptoms have not improved or if they continue to worsen Coding Level of Care Code ED Ward Service Supervisor for Odalis Fwd Exam Comprehensive
[2022-01-05 12:39] LABS: HCG Qualitative Urine. Negative (Negative)
[2022-01-05 12:49] LABS: Add Urine Microscopic? YES; Bilirubin Urine Neg (Negative); Blood Urine 3+ (Negative); Glucose Urine UA Norm (Normal); Ketones Urine Negative (Negative); Leukocyte Esterase Urine 2+ (Negative); Nitrate Urine Negative (Negative); Protein Urine Neg (Negative); Specific Gravity, Urine 1.005 (1.005-1.030); Urine Appearance Hazy (CLEAR); Urine Color Yellow (Yellow); Urobilinogen Urine Norm (Negative); pH Urine 7 (5-7)
[2022-01-05 12:51] LABS: Squamous Epithelial Cell Urine 0-4 /hpf (0-5); WBC Urine 55-80 /hpf (0-5)
[2022-01-05 12:52] LABS: Add Urine Culture? Yes; Bacteria Urine TRACE /hpf; Mucus Urine TRACE /hpf
--- NOTE | 2022-01-05 12:53 | CTR_ITS ---
PROCEDURE INFORMATION: Exam: CT Abdomen And Pelvis Without Contrast Exam date and time: 01/05/2022 2:11 PM Age: 21 years old Clinical indication: Abdominal pain; Flank; Right; Prior surgery; Surgery type: Tubal; Additional info: Hematuria, flank, rlq abd pain TECHNIQUE: Imaging protocol: Computed tomography of the abdomen and pelvis without contrast. Radiation optimization: All CT scans at this facility use at least one of these dose optimization techniques: automated exposure control; mA and/or kV adjustment per patient size (includes targeted exams where dose is matched to clinical indication); or iterative reconstruction. COMPARISON: US pelvic complete* [id number] 11/10/2017 5:00 PM RADIATION DOSE METRICS: Total DLP (mGy-cm): 389.73 FINDINGS: Liver: Normal. No mass. Gallbladder and bile ducts: Normal. No calcified stones. No ductal dilation. Pancreas: Normal. No ductal dilation. Spleen: Normal. No splenomegaly. Adrenal glands: Normal. No mass. Kidneys and ureters: No renal calcification or hydronephrosis. Stomach and bowel: There is stool throughout the colon. No bowel obstruction. Appendix: No evidence of appendicitis. Intraperitoneal space: Unremarkable. No free air. No significant fluid collection. Vasculature: Unremarkable. No abdominal aortic aneurysm. Lymph nodes: Unremarkable. No enlarged lymph nodes. Urinary bladder: Unremarkable as visualized. Reproductive: There are probable ovarian cysts.Fluid is seen in the pelvis which may be physiologic. Bones/joints: Unremarkable. No acute fracture. Soft tissues: Unremarkable. CT/CT kidney stone [id number] IMPRESSION: There are probable ovarian cysts.Fluid is seen in the pelvis which may be physiologic. If there is desire for further evaluation, a pelvic ultrasound could be performed.
[2022-01-05] MEDS: ondansetron 4 MG Tablet PO (13:36)
== END 2022-01-05 14:28 | disposition home or self-care (01) ==
PROVIDERS: Emergency Provider Student in an Organized Health Care Education/Training Program; PCP Family Medicine
DX: N39.0 Urinary tract infection, site not specified (principal); N83.209 Unspecified ovarian cyst, unspecified side
CPT/HCPCS: 74176; 81001; 81025; 87086; 99284; Q0162